=== PATIENT | male | born 1975 ===

== ENCOUNTER 2018-06-20 18:57 | Emergency (ER) | payer SELFPAY ==
[2018-06-20 20:01] LABS: Absolute Lymphocytes (CBC) 2.4 K/uL (0.7-4.9); Absolute Monocytes 0.4 K/uL (0.1-1.3); Absolute Neutrophil 3.5 K/uL (1.8-8.0); Basophils % 0.7 % (0-1.3); Hematocrit 47.5 % (39.6-49.0); Lymphocytes % 34.9 % (15.3-44.8); MPV 9.1 fL (7.6-11.3); Monocytes % 5.9 % (3.3-12.3); RBC Red Blood Cell Count 5.34 M/uL (4.33-5.43)
[2018-06-20 20:21] LABS: Albumin 4.3 g/dL (3.4-5.0); Bilirubin Direct 0.2 mg/dL (0-0.2); Bilirubin Total 1.5 mg/dL (0.2-1.0); Potassium 3.7 mmol/L (3.5-5.1); Protein, Total 8.2 g/dL (6.4-8.2)
[2018-06-20 20:59] LABS: Urine Blood 3+ (NEG); Urine Glucose NEGATIVE (NEG); Urine Protein NEGATIVE (NEG); Urine pH 5.5 (5.0-7.0)
--- NOTE | 2018-06-20 21:08 | RAD REPORT ---
EXAM DESCRIPTION: CT - Abdomen Pelvis W Contrast - 06/20/2018 8:43 pm CLINICAL HISTORY: Abdominal pain COMPARISON: none. TECHNIQUE: Computed axial tomography of the abdomen pelvis was obtained. 100 cc Isovue-300 was admin istered intravenously. Oral contrast was not requested which limits evaluation of bowel. All CT scans are performed using dose optimization technique as appropriate and may include automated exposure control or mA/KV adjustment according to patient size. FINDINGS: Mild left hydronephrosis. Small bilateral renal calculi. 5 millimeter calculus proximal le ft ureter Hounsfield unit 611. Small right renal cyst. Liver, spleen, pancreas and adrenals are unremarkable. There is no evidence of diverticulitis. Normal appendix Small umbilical hernia. Curvilinear calcification within the distal penis perhaps related to prior in flammation. IMPRESSION: 5 millimeter calculus proximal left ureter resulting mild left hydronephrosis.
--- NOTE | 2018-06-20 21:25 | ER ---
Nurse's Notes [facility] Name: Davie Rich Age: 42 yrs Sex: Male : 1975 Arrival Date: 06/20/2018 Time: 19:02 Bed 28 Private MD: Diagnosis: Calculus of ureter-left Presentation: 06/20 19:14 Presenting complaint: Patient states: I have been having abdominal pain for about 10 tl1 days with worsening pain the last 2 days. No nausea or vomiting or diarrhea reported. Transition of care: patient was not received from another setting of care. Onset of symptoms is unknown. Risk Assessment: Do you want to hurt yourself or someone else? Patient reports no desire to harm self or others. Initial Sepsis Screen: Does the patient meet any 2 criteria? No. Patient's initial sepsis screen is negative. Does the patient have a suspected source of infection? No. Patient's initial sepsis screen is negative. Care prior to arrival: None. 19:14 Method Of Arrival: Ambulatory tl1 19:14 Acuity: MERRICK 3 tl1 Historical: - Allergies: 19:16 No Known Allergies; tl1 - Home Meds: 19:16 None [Active]; tl1 - PMHx: 19:16 None; tl1 - PSHx: 19:16 hernia repair; tl1 - Immunization history:: Adult Immunizations up to date. - Social history:: Smoking status: Patient/guardian denies using tobacco, never smoked, Patient uses alcohol, but reports only rare drinking. - Ebola Screening: : Patient negative for fever greater than or equal to 101.5 degrees Fahrenheit, and additional compatible Ebola Virus Disease symptoms Patient denies exposure to infectious person Patient denies travel to an Ebola-affected area in the 21 days before illness onset. Screenin:17 Abuse screen: Denies threats or abuse. Denies injuries from another. Nutritional mg2 screening: No deficits noted. Tuberculosis screening: No symptoms or risk factors identified. Fall Risk None identified. Assessment: 19:36 General: Appears in no apparent distress. comfortable, Behavior is calm, cooperative. mg2 Pain: Complains of pain in back and abdomen Pain does not radiate. Quality of pain is described as aching, Pain began gradually, 15 days ago Is intermittent. Neuro: Level of Consciousness is awake, alert, obeys commands, Oriented to person, place, time, situation. Cardiovascular: Capillary refill < 3 seconds Patient's skin is warm and dry. Respiratory: Airway is patent Respiratory effort is even, unlabored, Respiratory pattern is regular, symmetrical. GI: Bowel sounds present X 4 quads. Abd is soft and non tender. GI: Abdomen is flat, non-distended, Reports lower abdominal pain, upper abdominal pain. : Urine is clear. EENT: No signs and/or symptoms were reported regarding the EENT system. Derm: Skin is intact, is healthy with good turgor, Skin is pink, warm \T\ dry. normal. Musculoskeletal: No signs and/or symptoms reported regarding the musculoskeletal system. 20:45 Reassessment: patient sent for ct scan. mg2 21:33 Reassessment: patient for discharge after the iv fluid bolus. mg2 Vital Signs: 19:15 BP 120 / 86; Pulse 73; Resp 17; Temp 99(O); Pulse Ox 99% ; Weight 54.43 kg; Height 5 tl1 ft. 3 in. (160.02 cm); Pain 7/10; 21:32 BP 121 / 78; Pulse 71; Resp 17; Pulse Ox 100% on R/A; Pain 3/10; mg2 19:15 Body Mass Index 21.26 (54.43 kg, 160.02 cm) tl1 ED Course: 19:02 Patient arrived in ED. mr 19:12 Jose R Puente, NAS is PHCP. pm1 19:12 Sana Merino MD is Attending Physician. pm1 19:15 Triage completed. tl1 19:16 Brant De, RN is Primary Nurse. mg2 19:16 Arm band placed on right wrist. tl1 19:18 Patient has correct armband on for positive identification. Door closed. Warm blanket mg2 given. 19:36 No provider procedures requiring assistance completed. Inserted saline lock: 20 gauge mg2 in left antecubital area, using aseptic technique. Blood collected. 20:43 CT Abd/Pelvis - W/Contrast: IV contrast only In Process Unspecified. EDMS 21:21 Sinai Amato MD is Referral Physician. pm1 22:30 IV discontinued, intact, bleeding controlled, No redness/swelling at site. Pressure mg2 dressing applied. Administered Medications: 21:31 Drug: TORadol 30 mg Route: IVP; Site: left antecubital; mg2 22:30 Follow up: Response: No adverse reaction; Marked relief of symptoms mg2 21:31 Drug: Flomax 0.4 mg Route: PO; mg2 22:30 Follow up: Response: No adverse reaction; Marked relief of symptoms mg2 21:32 Drug: NS 0.9% 1000 ml Route: IV; Rate: 1000 ml; Site: left antecubital; mg2 22:30 Follow up: Response: No adverse reaction; IV Status: Completed infusion mg2 Outcome: 21:24 Discharge ordered by MD. pm1 22:30 Discharged to home ambulatory, with friend. mg2 22:30 Condition: stable 22:30 Discharge instructions given to patient, friend, Instructed on discharge instructions, follow up and referral plans. medication usage, Demonstrated understanding of instructions, follow-up care, medications, Prescriptions given X 2. 22:31 Patient left the ED. mg2 Signatures: Dispatcher [employer] Reva Bishop MicahSuni eason RN RN tl1 Jose R Puente, NAS ORDER TAKER pm1 Brant De RN RN mg2
--- NOTE | 2018-06-20 21:25 | EDPHYS ---
Physician Documentation [facility] Name: Davie Rich Age: 42 yrs Sex: Male : 1975 Arrival Date: 06/20/2018 Time: 19:02 Bed 28 Private MD: ED Physician Sana Merino HPI: 06/20 20:13 This 42 yrs old Unknown Male presents to ER via Ambulatory with complaints of Abdominal pm1 Pain, Flank Pain. 20:13 The patient presents with abdominal pain that is diffuse. Onset: The symptoms/episode pm1 began/occurred 10 day(s) ago. The symptoms do not radiate. Associated signs and symptoms: Pertinent negatives: nausea, vomiting, and diarrhea, chest pain, dysuria, fever, headache, shortness of breath, testicular pain. The symptoms are described as crampy. Modifying factors: The symptoms are alleviated by nothing, the symptoms are aggravated by nothing. Severity of pain: in the emergency department the pain is actually worse past two days. The patient has not experienced similar symptoms in the past. Historical: - Allergies: 19:16 No Known Allergies; tl1 - Home Meds: 19:16 None [Active]; tl1 - PMHx: 19:16 None; tl1 - PSHx: 19:16 hernia repair; tl1 - Immunization history:: Adult Immunizations up to date. - Social history:: Smoking status: Patient/guardian denies using tobacco, never smoked, Patient uses alcohol, but reports only rare drinking. - Ebola Screening: : Patient negative for fever greater than or equal to 101.5 degrees Fahrenheit, and additional compatible Ebola Virus Disease symptoms Patient denies exposure to infectious person Patient denies travel to an Ebola-affected area in the 21 days before illness onset. ROS: 20:15 Constitutional: Negative for fever, chills, and weight loss, Eyes: Negative for injury, pm1 pain, redness, and discharge, ENT: Negative for injury, pain, and discharge, Neck: Negative for injury, pain, and swelling, Cardiovascular: Negative for chest pain, palpitations, and edema, Respiratory: Negative for shortness of breath, cough, wheezing, and pleuritic chest pain. 20:15 : Negative for injury, bleeding, discharge, and swelling, MS/Extremity: Negative for injury and deformity, Skin: Negative for injury, rash, and discoloration, Neuro: Negative for headache, weakness, numbness, tingling, and seizure. 20:15 Abdomen/GI: Positive for abdominal pain, of the abdomen diffusely, Negative for nausea, vomiting, and diarrhea. 20:15 Back: Positive for flank pain, bilaterally. Exam: 20:15 Constitutional: This is a well developed, well nourished patient who is awake, alert, pm1 and in no acute distress. Head/Face: Normocephalic, atraumatic. Eyes: Pupils equal round and reactive to light, extra-ocular motions intact. Lids and lashes normal. Conjunctiva and sclera are non-icteric and not injected. Cornea within normal limits. Periorbital areas with no swelling, redness, or edema. ENT: Nares patent. No nasal discharge, no septal abnormalities noted. Tympanic membranes are normal and external auditory canals are clear. Oropharynx with no redness, swelling, or masses, exudates, or evidence of obstruction, uvula midline. Mucous membranes moist. Neck: Trachea midline, no thyromegaly or masses palpated, and no cervical lymphadenopathy. Supple, full range of motion without nuchal rigidity, or vertebral point tenderness. No Meningismus. Chest/axilla: Normal chest wall appearance and motion. Nontender with no deformity. No lesions are appreciated. Cardiovascular: Regular rate and rhythm with a normal S1 and S2. No gallops, murmurs, or rubs. Normal PMI, no JVD. No pulse deficits. Respiratory: Lungs have equal breath sounds bilaterally, clear to auscultation and percussion. No rales, rhonchi or wheezes noted. No increased work of breathing, no retractions or nasal flaring. Abdomen/GI: Soft, non-tender, with normal bowel sounds. No distension or tympany. No guarding or rebound. No evidence of tenderness throughout. Back: No spinal tenderness. No costovertebral tenderness. Full range of motion. Skin: Warm, dry with normal turgor. Normal color with no rashes, no lesions, and no evidence of cellulitis. MS/ Extremity: Pulses equal, no cyanosis. Neurovascular intact. Full, normal range of motion. 20:15 Neuro: Orientation: is normal, Motor: is normal, moves all fours, Sensation: is normal, no obvious gross deficits, Gait: is steady, at a normal pace, without difficulty. Vital Signs: 19:15 BP 120 / 86; Pulse 73; Resp 17; Temp 99(O); Pulse Ox 99% ; Weight 54.43 kg; Height 5 tl1 ft. 3 in. (160.02 cm); Pain 7/10; 21:32 BP 121 / 78; Pulse 71; Resp 17; Pulse Ox 100% on R/A; Pain 3/10; mg2 19:15 Body Mass Index 21.26 (54.43 kg, 160.02 cm) tl1 MDM: 19:12 Patient medically screened. pm1 21:21 Data reviewed: vital signs. Data interpreted: Pulse oximetry: on room air is 99 %. pm1 Interpretation: normal. Counseling: I had a detailed discussion with the patient and/or guardian regarding: the historical points, exam findings, and any diagnostic results supporting the discharge/admit diagnosis, lab results, radiology results, the need for outpatient follow up, for definitive care, a urologist, to return to the emergency department if symptoms worsen or persist or if there are any questions or concerns that arise at home. 06/20 19:33 Order name: Basic Metabolic Panel; Complete Time: 20:37 pm1 06/20 19:33 Order name: CBC with Diff; Complete Time: 20:37 pm1 06/20 19:33 Order name: Creatinine for Radiology; Complete Time: 20:37 pm1 06/20 19:33 Order name: Hepatic Function; Complete Time: 20:37 pm1 06/20 19:33 Order name: Lipase; Complete Time: 20:37 pm1 06/20 19:40 Order name: Urine Dipstick--Ancillary (enter results); Complete Time: 21:01 ar5 06/20 19:33 Order name: IV Saline Lock; Complete Time: 19:35 pm1 06/20 19:33 Order name: Labs collected and sent; Complete Time: 19:35 pm1 06/20 19:33 Order name: Urine Dipstick-Ancillary (obtain specimen); Complete Time: 19:35 pm1 06/20 19:33 Order name: CT Abd/Pelvis - W/Contrast: IV contrast only; Complete Time: 21:13 pm1 Administered Medications: 21:31 Drug: TORadol 30 mg Route: IVP; Site: left antecubital; mg2 22:30 Follow up: Response: No adverse reaction; Marked relief of symptoms mg2 21:31 Drug: Flomax 0.4 mg Route: PO; mg2 22:30 Follow up: Response: No adverse reaction; Marked relief of symptoms mg2 21:32 Drug: NS 0.9% 1000 ml Route: IV; Rate: 1000 ml; Site: left antecubital; mg2 22:30 Follow up: Response: No adverse reaction; IV Status: Completed infusion mg2 Disposition: 06/20/18 21:24 Discharged to Home. Impression: Calculus of ureter - left. - Condition is Stable. - Discharge Instructions: Kidney Stones, Dietary Guidelines to Help Prevent Kidney Stones. - Prescriptions for Tylenol- Codeine #3 300-30 mg Oral Tablet - take 2 tablets by ORAL route every 6 hours As needed; 20 tablet. Flomax 0.4 mg Oral Capsule, Sust. Release 24 hr - take 1 capsule by ORAL route once daily 1/2 hour following the same meal each day; 30 capsule. - Medication Reconciliation Form, Thank You Letter, Prescription Opioid Use form. - Follow up: Emergency Department; When: As needed; Reason: Worsening of condition. Follow up: Sinai Amato MD; When: 2 - 3 days; Reason: Recheck today's complaints, Continuance of care, Re-evaluation by your physician. - Problem is new. - Symptoms have improved. Addendum: 06/22/2018 07:31 Co-signature as Attending Physician, Sana Merino MD. m a2 Signatures: Dispatcher [employer] EDSuni Crow RN RN tl1 Jose R Puente, COURT ADV[facility] COURT ADVOCATE pm1 Sana Merino MD MD ma2 Brant De RN RN mg2 Corrections: (The following items were deleted from the chart) 06/20 22:31 21:24 06/20/2018 21:24 Discharged to Home. Impression: Calculus of ureter - left. mg2 Condition is Stable. Forms are Medication Reconciliation Form, Thank You Letter, Antibiotic Education, Prescription Opioid Use. Follow up: Emergency Department; When: As needed; Reason: Worsening of condition. Follow up: Sinai Amato; When: 2 - 3 days; Reason: Recheck today's complaints, Continuance of care, Re-evaluation by your physician. Problem is new. Symptoms have improved. pm1
[2018-06-20] MEDS ORDERED: KETOROLAC 30 MG/ML INJ ONE (21:40)
[2018-06-20] MEDS ORDERED: TAMSULOSIN 0.4 MG SR CAP ONE (21:40)
[2018-06-20] MEDS ORDERED: NA CHLORIDE 0.9% 1,000 ML ONE (21:41)
== END 2018-06-20 22:31 | disposition home or self-care (01) ==
LOC: ER 18:57
DX: N20.1 Calculus of ureter (principal)
CPT/HCPCS: 36415; 74177; 80048; 80076; 81003; 83690; 85025; 96361; 96374; 99284; J7030; Q9967

== ENCOUNTER 2020-08-04 19:32 | Emergency (ER) | payer SELFPAY ==
--- OUTSIDE RECORDS SUMMARY | 2020-08-04 19:35 | XMS REPORT | Continuity of Care Document ---
:1975 Author Organization [facility] t Address [address] [place] [address] Care Team Providers Name Role Phone Unavailable Unavailable Unavailable Problems Condition Condition Condition Status Onset Resolution Last Treating Co mments Source Name Details Category Date Date Treatment Clinician Date GERD GERD Problem Active [facility] - esophagiti esophagiti Me moria [facility] Mixed [facility] Diagnosis Active [facility] hyperlipid hyperlipid Vivian k[facility] - emia em[facility] Kidney Kidney Diagnosis Active [facility] stone [facility] Clinics Nonintract Nonintract Diagnosis Active [facility] able [facility] - headache, headache, Kannan felipe unspecifie unspecifie l d d Outpati chronicity chronicity en t pattern, pattern, Clinic s unspecifie unspecifie d headache d headache type type Allergies, Adverse Reactions, Alerts This patient has no known allergies or adverse reactions. Medications Ordered Filled Start Stop Current Ordering Indication Dosage Frequency Signature Comments Components Source Medication Medication Date Date Medication? Clinician (SIG) Name Name Pantoprazol Pantoprazol 2019-0 Yes Live [address] [facility] Sodium e Sodium 4-04 [facility] - 00:00: [facility] 00 [facility] ent Clinics Procedures This patient has no known procedures. Encounters Start End Encounter Admission Attending Care Care Encounter Source Date/Time Date/Time Type Type Clinicians Facility Department ID 2018-07-23 2018-07-23 [facility] [id number] [facility] [address] 09:00:00 09:00:00 [facility] Medicine Medicine [facility] ent Clinics Results This patient has no known results.
[2020-08-04 21:31] LABS: Absolute Lymphocytes (CBC) 1.2 K/uL (0.7-4.9); Basophils % 0.4 % (0-1.3); Hematocrit 41.6 % (39.6-49.0); Lymphocytes % 13.6 % (15.3-44.8); MPV 9.4 fL (7.6-11.3); RBC Red Blood Cell Count 4.82 M/uL (4.33-5.43)
[2020-08-04] MEDS ORDERED: NA CHLORIDE 0.9% 1,000 ML ONE (21:42)
[2020-08-04] MEDS ORDERED: MORPHINE 4 MG/ML SYR ONE (21:42)
[2020-08-04] MEDS ORDERED: ONDANSETRON 4 MG/2 ML VIAL ONE (21:42)
[2020-08-04 21:49] LABS: Albumin 4.1 g/dL (3.4-5.0); Bilirubin Direct 0.2 mg/dL (0-0.2); Bilirubin Total 1.7 mg/dL (0.2-1.0); Potassium 3.6 mmol/L (3.5-5.1); Protein, Total 7.8 g/dL (6.4-8.2)
[2020-08-04] MEDS ORDERED: TAMSULOSIN 0.4 MG SR CAP ONE (23:23)
[2020-08-04] MEDS ORDERED: KETOROLAC 30 MG/ML INJ ONE (23:43)
[2020-08-05 00:13] LABS: Urine Blood 1+ (Negative); Urine Glucose NEGATIVE (Negative); Urine Protein NEGATIVE (Negative)
--- NOTE | 2020-08-05 00:21 | EDPHYS ---
Physician Documentation [facility] Name: Davie Rich Age: 44 yrs Sex: Male : 1975 Arrival Date: 08/04/2020 Time: 19:36 Bed 25 Private MD: ED Physician Holland Terry HPI: 08/04 21:05 This 44 yrs old Unknown Male presents to ER via Ambulatory with complaints of Pain. jmm 21:05 The patient presents with abdominal pain. The symptoms radiate to the right flank. jmm Associated signs and symptoms: Pertinent negatives: fever, vomiting. The symptoms are described as achy. Modifying factors: The symptoms are alleviated by nothing, the symptoms are aggravated by nothing. The patient has experienced a previous episode. This is a 44 year old male with no chronic medical conditions that presents to the ED with complaints of right lower abdominal pain beginning today. Patient states having a similar episode with kidney stone. Patient denies vomiting, fever. . Historical: - Allergies: 20:15 No Known Allergies; ca1 - PMHx: 20:15 None; ca1 - PSHx: 20:15 Hernia repair; ca1 - Immunization history:: Flu vaccine is not up to date. - Social history:: Smoking status: Patient denies any tobacco usage or history of. ROS: 21:05 Constitutional: Negative for fever, chills, and weight loss, Cardiovascular: Negative jmm for chest pain, palpitations, and edema, Respiratory: Negative for shortness of breath, cough, wheezing, and pleuritic chest pain. 21:05 Abdomen/GI: Positive for abdominal pain. 21:05 All other systems are negative. Exam: 21:05 Constitutional: This is a well developed, well nourished patient who is awake, alert, jmm and in no acute distress. Head/Face: atraumatic. Eyes: EOMI, no conjunctival erythema appreciated ENT: Moist Mucus Membranes Neck: Trachea midline, Supple Chest/axilla: Normal chest wall appearance and motion. Cardiovascular: Regular rate and rhythm. No edema appreciated Respiratory: Normal respirations, no respiratory distress appreciated 21:05 Skin: General appearance color normal MS/ Extremity: Moves all extremities, no obvious deformities appreciated, no edema noted to the lower extremities Neuro: Awake and alert, normal gait Psych: Behavior is normal, Mood is normal, Patient is cooperative and pleasant 21:05 Abdomen/GI: Inspection: abdomen appears normal, Bowel sounds: normal, Palpation: soft, mild abdominal tenderness, in the right lower quadrant. 21:05 Back: CVA tenderness, that is mild, is noted on the right. Vital Signs: 20:12 BP 153 / 91; Pulse 92; Resp 16 S; Temp 97.6(TE); Pulse Ox 100% on R/A; Weight 57 kg; ca1 Height 5 ft. 3 in. (160.02 cm) (R); Pain 9/10; 21:49 BP 132 / 89; Pulse 81; Resp 18; Pulse Ox 100% on R/A; zb 22:00 BP 133 / 92; Pulse 80; Resp 16; Pulse Ox 100% on R/A; zb 23:15 BP 136 / 85; Pulse 83; Resp 18; Pulse Ox 100% on R/A; zb 20:12 Body Mass Index 22.26 (57.00 kg, 160.02 cm) ca1 MDM: 21:05 Patient medically screened. [facility] 08/05 00:17 Data reviewed: vital signs, nurses notes. Counseling: I had a detailed discussion with [facility] the patient and/or guardian regarding: the historical points, exam findings, and any diagnostic results supporting the discharge/admit diagnosis, lab results, radiology results, the need for outpatient follow up, to return to the emergency department if symptoms worsen or persist or if there are any questions or concerns that arise at home. ED course: Patient states feeling much better. Advised to follow up with pcp and otherwise given strict return precautions. patient understood and agrees with the plan fo care. . 08/04 21:05 Order name: Basic Metabolic Panel; Complete Time: 21:49 [facility] 08/04 21:05 Order name: CBC with Diff; Complete Time: 21:42 [facility] 08/04 21:05 Order name: Hepatic Function; Complete Time: 21:49 [facility] 08/04 21:05 Order name: Lipase; Complete Time: 21:49 [facility] 08/05 00:06 Order name: Urine Dipstick--Ancillary (enter results) tt3 08/05 00:13 Order name: Urine Dipstick-Ancillary [facility] 08/04 21:05 Order name: IV Saline Lock; Complete Time: 21:10 [facility] 08/04 21:05 Order name: Labs collected and sent; Complete Time: 21:29 [facility] 08/04 21:05 Order name: CT Stone Protocol [facility] 08/05 00:02 Order name: Urine Dipstick-Ancillary (obtain specimen); Complete Time: 00:05 [facility] Administered Medications: 08/04 21:28 Drug: NS 0.9% 1000 ml Route: IV; Rate: 1000 ml; Site: left antecubital; zb 23:14 Follow up: Response: No adverse reaction; IV Status: Completed infusion; IV Intake: zb 1000ml 21:28 Drug: Zofran (Ondansetron) 4 mg Route: IVP; Site: left antecubital; zb 22:00 Follow up: Response: No adverse reaction zb 21:28 Drug: morphine 4 mg {Note: rass +1.} Route: IVP; Site: left antecubital; zb 22:00 Follow up: Response: No adverse reaction; Pain is decreased; RASS: Alert and Calm (0) zb 23:10 Drug: Flomax 0.4 mg Route: PO; zb 23:27 Follow up: Response: No adverse reaction zb 23:27 Drug: TORadol (ketorolac) 30 mg Route: IVP; Site: left antecubital; zb 23:55 Follow up: Response: No adverse reaction; Marked relief of symptoms; Pain is decreased zb Disposition: 08/05 07:27 Co-signature as Attending Physician, Holland Terry MD. [email or web address] Disposition: 08/05/20 00:21 Discharged to Home. Impression: Calculus of kidney and ureter. - Condition is Stable. - Discharge Instructions: Kidney Stones, Dietary Guidelines to Help Prevent Kidney Stones. - Prescriptions for Zofran ODT 4 mg Oral tablet,disintegrating - place 1 tablet by TRANSLINGUAL route every 4-6 hours; 20 tablet. Tylenol- Codeine #3 300-30 mg Oral Tablet - take 1 tablet by ORAL route every 4-6 hours As needed; 20 tablet. Flomax 0.4 mg Oral Capsule, Sust. Release 24 hr - take 1 capsule by ORAL route once daily 1/2 hour following the same meal each day; 30 capsule. - Medication Reconciliation Form, Thank You Letter, Antibiotic Education, Prescription Opioid Use form. - Follow up: Delfin Godwin MD; When: 2 - 3 days; Reason: Recheck today's complaints, Continuance of care, Re-evaluation by your physician. Signatures: Dispatcher [employer] EDNeymar Bro PA PA jmm Acob, Cheryl RN RN [facility] Holland Terry MD MD [facility] Miri Magana RN RN zb Corrections: (The following items were deleted from the chart) 00:29 00:21 08/05/2020 00:21 Discharged to Home. Impression: Calculus of kidney and ureter. zb Condition is Stable. Forms are Medication Reconciliation Form, Thank You Letter, Antibiotic Education, Prescription Opioid Use. Follow up: Delfin Godwin; When: 2 - 3 days; Reason: Recheck today's complaints, Continuance of care, Re-evaluation by your physician. [email or web address]
--- NOTE | 2020-08-05 00:21 | ER ---
Nurse's Notes [facility] Name: Davie Rich Age: 44 yrs Sex: Male : 1975 Arrival Date: 08/04/2020 Time: 19:36 Bed 25 Private MD: Diagnosis: Calculus of kidney and ureter Presentation: 08/04 20:12 Chief complaint: Patient states: HX of kidney stones. R flank pain radiating to the LRQ ca1 and to the groin and testicular area. Denies N/V. Reports occasional pain with urination. Coronavirus screen: Client denies travel out of the [place] in the last 14 days. At this time, the client does not indicate any symptoms associated with coronavirus-19. Ebola Screen: Patient negative for fever greater than or equal to 101.5 degrees Fahrenheit, and additional compatible Ebola Virus Disease symptoms Patient denies exposure to infectious person. Patient denies travel to an Ebola-affected area in the 21 days before illness onset. No symptoms or risks identified at this time. Initial Sepsis Screen: Does the patient meet any 2 criteria? No. Patient's initial sepsis screen is negative. Does the patient have a suspected source of infection? No. Patient's initial sepsis screen is negative. Risk Assessment: Do you want to hurt yourself or someone else? Patient reports no desire to harm self or others. Onset of symptoms was August 04, 2020. 20:12 Method Of Arrival: Ambulatory ca1 20:12 Acuity: MERRICK 3 ca1 Historical: - Allergies: 20:15 No Known Allergies; ca1 - PMHx: 20:15 None; ca1 - PSHx: 20:15 Hernia repair; ca1 - Immunization history:: Flu vaccine is not up to date. - Social history:: Smoking status: Patient denies any tobacco usage or history of. Screenin:53 Abuse screen: Denies threats or abuse. Denies injuries from another. Nutritional zb screening: No deficits noted. Tuberculosis screening: No symptoms or risk factors identified. Fall Risk None identified. Assessment: 20:53 General: Appears uncomfortable, Behavior is calm, cooperative, appropriate for age. zb Pain: Complains of pain in posterior aspect of left lateral abdomen, groin, right femoral area and right inguinal area Pain radiates to right flank Pain currently is 10 out of 10 on a pain scale. Pain began 4 hours ago. Is continuous, Alleviated by nothing. Noted to be guarding, Also complains of no other associated symptoms. Neuro: Level of Consciousness is awake, alert, obeys commands, Oriented to person, place, time, situation, Gait is steady. Cardiovascular: Capillary refill < 3 seconds Patient's skin is warm and dry. Respiratory: Airway is patent Respiratory effort is even, unlabored, Respiratory pattern is regular, symmetrical. GI: Abdomen is round Abd is soft and non tender X 4 quads. : Urine is clear, Reports burning with urination, pain in right in suprapubic area flank(s), scrotum, with urination. Derm: Skin is intact, is healthy with good turgor, Skin is dry, Skin is normal, Skin temperature is warm. Musculoskeletal: Range of motion: intact in all extremities. 21:02 Reassessment: ecp at bedside. zb 21:36 Reassessment: patient came back from CT. zb 22:20 Reassessment: Patient appears in no apparent distress at this time. Patient and/or zb family updated on plan of care and expected duration. Pain level reassessed. Patient is alert, oriented x 3, equal unlabored respirations, skin warm/dry/pink. 23:16 Reassessment: Patient appears in no apparent distress at this time. Patient and/or zb family updated on plan of care and expected duration. Pain level reassessed. Patient is alert, oriented x 3, equal unlabored respirations, skin warm/dry/pink. pt states he is still having pain. notified ECP. 23:55 Reassessment: patient given additional medication. states pain has decreased. patient zb states he is feeling a little better. Vital Signs: 20:12 BP 153 / 91; Pulse 92; Resp 16 S; Temp 97.6(TE); Pulse Ox 100% on R/A; Weight 57 kg; ca1 Height 5 ft. 3 in. (160.02 cm) (R); Pain 9/10; 21:49 BP 132 / 89; Pulse 81; Resp 18; Pulse Ox 100% on R/A; zb 22:00 BP 133 / 92; Pulse 80; Resp 16; Pulse Ox 100% on R/A; zb 23:15 BP 136 / 85; Pulse 83; Resp 18; Pulse Ox 100% on R/A; zb 20:12 Body Mass Index 22.26 (57.00 kg, 160.02 cm) ca1 ED Course: 19:36 Patient arrived in ED. am4 20:14 Triage completed. ca1 20:15 Arm band placed on right wrist. ca1 20:20 Neymar Lantigua PA is PHCP. jmm 20:20 Holland Terry MD is Attending Physician. jmm 20:48 Miri Maagna RN is Primary Nurse. zb 20:55 Patient has correct armband on for positive identification. Bed in low position. Call zb light in reach. Side rails up X 1. Pulse ox on. NIBP on. Door closed. Noise minimized. 20:55 Urine collected: clean catch specimen, clear. zb 21:21 Inserted saline lock: 20 gauge in left antecubital area, using aseptic technique. Blood dh4 collected. 21:47 CT Stone Protocol In Process Unspecified. EDMS 08/05 00:19 Delfin Godwin MD is Referral Physician. m 00:28 No provider procedures requiring assistance completed. IV discontinued, intact, zb bleeding controlled, No redness/swelling at site. Pressure dressing applied. Administered Medications: 08/04 21:28 Drug: NS 0.9% 1000 ml Route: IV; Rate: 1000 ml; Site: left antecubital; zb 23:14 Follow up: Response: No adverse reaction; IV Status: Completed infusion; IV Intake: zb 1000ml 21:28 Drug: Zofran (Ondansetron) 4 mg Route: IVP; Site: left antecubital; zb 22:00 Follow up: Response: No adverse reaction zb 21:28 Drug: morphine 4 mg {Note: rass +1.} Route: IVP; Site: left antecubital; zb 22:00 Follow up: Response: No adverse reaction; Pain is decreased; RASS: Alert and Calm (0) zb 23:10 Drug: Flomax 0.4 mg Route: PO; zb 23:27 Follow up: Response: No adverse reaction zb 23:27 Drug: TORadol (ketorolac) 30 mg Route: IVP; Site: left antecubital; zb 23:55 Follow up: Response: No adverse reaction; Marked relief of symptoms; Pain is decreased zb Intake: 23:14 IV: 1000ml; Total: 1000ml. zb Outcome: 08/05 00:21 Discharge ordered by . santosh 00:28 Discharged to home ambulatory. zb 00:28 Condition: stable 00:28 Discharge instructions given to patient, Instructed on discharge instructions, follow up and referral plans. medication usage, Demonstrated understanding of instructions, follow-up care, medications, Prescriptions given X 3. 00:29 Patient left the ED. zb Signatures: Dispatcher [employer] EDMS Neymar Lantigua PA PA jmm Acob, Cheryl, RN RN ca1 Guicho Glaser 4 Miri Magana RN RN Wendy Templeton [facility]
[2020-08-05 01:25] VITALS: TEMP 97.6; O2SAT 100
[2020-08-05 01:30] VITALS: BP 136/85
--- NOTE | 2020-08-05 20:08 | RAD REPORT ---
EXAM DESCRIPTION: CT - Stone Protocol - 08/05/2020 6:45 am CLINICAL HISTORY: Male, 44 years old, FLANK PAIN COMPARISON: 06/20/2018 TECHNIQUE: CT acquisition of the abdomen and pelvis without contrast. Coronal and sagittal reformatt ed images provided. This exam was performed according to departmental dose-optimization program which includes automated exposure control, adjustment of the mA and/or kV according to patient size, and/o r use of iterative reconstruction technique. FINDINGS: SUPPORTIVE DEVICES: None. LOWER CHEST: No significant abnormality within the lower chest. ABDOMEN AND PELVIS: Lack of intravenous contrast limits evaluation of the abdominal and pelvic viscera and vascular struc tures. Liver: Small dystrophic calcification of the inferior right hepatic lobe, otherwise unremarkable. Gallbladder and bile ducts: Unremarkable. Pancreas: Unremarkable. Spleen: Unremarkable. Adrenal glands: Unremarkable. Kidneys and ureters: 3 mm stone within the right distal ureter immediately proximal to the ureteroves icular junction with mild to moderate hydroureteronephrosis. Additional nonobstructing stones are pre sent within the right more numerous than left renal collecting systems. The left ureter is unremarkab le. Bladder: Normal. Reproductive organs: Calcification of the corpora cavernosa, otherwise unremarkable. GI tract: Normal caliber without wall thickening. Normal appendix. Submucosal fat infiltration involv ing a majority of the large bowel from the cecum to the descending/sigmoid colonic junction. Lymph nodes: No obvious adenopathy. Peritoneum: No evidence of ascites, fluid collection, or free air. Abdominal wall: No significant hernia. Vessels: Unremarkable. MUSCULOSKELETAL: No acute osseous abnormality. IMPRESSION: 1. Obstructing 3 mm stone within the right distal ureter with mild to moderate obstruc tive uropathy. 2. Additional nonobstructing stones are present within the right more numerous than left renal elijah ecting systems. 3. Submucosal fat infiltration of the majority of the colonic wall can be seen in the setting of ch ronic inflammation. Electronically signed by: Tony Saul MD 08/04/2020 10:01 PM CDT Due to temporary technical issues with the PACS/Fluency reporting system, reports are being signed by the in house radiologists without review as a courtesy to insure prompt reporting. The interpreting radiologist is fully responsible for the content of the report.
== END 2020-08-05 00:29 | disposition home or self-care (01) ==
LOC: ER 19:32
DX: N13.2 Hydronephrosis with renal and ureteral calculous obstruction (principal)
CPT/HCPCS: 36415; 74176; 76377; 80048; 80076; 81003; 83690; 85025; 96361; 96374; 96375; 99284; J2405; J7030

== ENCOUNTER 2020-08-15 13:23 | Emergency (ER) | payer SELFPAY ==
--- OUTSIDE RECORDS SUMMARY | 2020-08-15 13:25 | XMS REPORT | Continuity of Care Document ---
:1975 Author Organization [facility] t Address [address] [place] [address] Care Team Providers Name Role Phone Unavailable Unavailable Unavailable Problems Condition Condition Condition Status Onset Resolution Last Treating Co mments Source Name Details Category Date Date Treatment Clinician Date GERD GERD Problem Active [facility] Mixed Mixed Diagnosis [facility] hyperlipid [facility]lipid Vivian kes - emia emia [facility] Clinics Kidney Kidney Diagnosis [facility] Clinics Nonintract Nonintract Diagnosis Active [facility] S[facility] e S[facility] 4[facility] 00 [facility] ent Clinics Procedures This patient has no known procedures. Encounters Start End Encounter Admission Attending Care Care Encounter Source Date/Time Date/Time Type Type Clinicians Facility Department ID 2018-07-23 2018-07-23 [facility] [id number] [facility] 09:00:00 09:00:00 [facility] Medicine Medicine [facility] ent Clinics Results This patient has no known results.
[2020-08-15] MEDS ORDERED: MAGNESIUM CITRATE 300 ML BOT ONE (14:10)
--- NOTE | 2020-08-15 14:32 | RAD REPORT ---
EXAM DESCRIPTION: CT - Stone Protocol - 08/15/2020 2:14 pm CLINICAL HISTORY: Abdominal pain. COMPARISON: August 04, 2020 TECHNIQUE: Computed axial tomography of the abdomen pelvis was obtained without oral or IV contrast. Lack of IV and oral contrast limits evaluation of solid organs, bowel, and vessels. Coronal reformat miriam images were obtained and reviewed. All CT scans are performed using dose optimization technique as appropriate and may include automated exposure control or mA/KV adjustment according to patient size. FINDINGS: Right hydronephrosis has resolved. The calculus within the distal right ureter has passed. Small bilateral renal calculi. No left hydronephrosis. A ureteral calculus is not seen. No bladder ca lculus The liver, spleen, pancreas and adrenals appear grossly normal There is no evidence of diverticulitis. The appendix appears normal. Moderate amount of stool within the colon IMPRESSION: Small bilateral nonobstructing renal calculi Moderate stool within the colon
[2020-08-15] MEDS ORDERED: FLEET ENEMA ADULT PR ONE (15:33)
--- NOTE | 2020-08-15 16:49 | EDPHYS ---
Physician Documentation [facility] Name: Davie Rich Age: 44 yrs Sex: Male : 1975 Arrival Date: 08/15/2020 Time: 13:27 Bed 18 Private MD: ED Physician Nacho Saunders HPI: 08/15 16:40 This 44 yrs old Unknown Male presents to ER via Ambulatory with complaints of jmm Constipation. 16:40 The patient presents with abdominal pain that is diffuse. Onset: The symptoms/episode jmm began/occurred gradually, 5 day(s) ago. The symptoms do not radiate. Associated signs and symptoms: Pertinent positives: nausea and vomiting. The symptoms are described as achy. Modifying factors: The symptoms are alleviated by nothing, the symptoms are aggravated by nothing. Patient states he has been taking tylenol with codeine the past 5 days. . Historical: - Allergies: 13:49 No Known Allergies; em - Home Meds: 14:30 None [Active]; ld1 - PMHx: 13:49 Kidney stones; em - PSHx: 13:49 Hernia repair; em - Immunization history:: Adult Immunizations up to date. - Social history:: Smoking status: Patient denies any tobacco usage or history of. Smoking status: Patient denies any tobacco usage or history of. Patient/guardian denies using alcohol. ROS: 16:40 Constitutional: Negative for fever, chills, and weight loss, Cardiovascular: Negative jmm for chest pain, palpitations, and edema, Respiratory: Negative for shortness of breath, cough, wheezing, and pleuritic chest pain. 16:40 Abdomen/GI: Positive for abdominal pain, nausea, constipation. 16:40 All other systems are negative. Exam: 16:40 Constitutional: This is a well developed, well nourished patient who is awake, alert, jmm and in no acute distress. Head/Face: atraumatic. Eyes: EOMI, no conjunctival erythema appreciated ENT: Moist Mucus Membranes Neck: Trachea midline, Supple Chest/axilla: Normal chest wall appearance and motion. Cardiovascular: Regular rate and rhythm. No edema appreciated Respiratory: Normal respirations, no respiratory distress appreciated 16:40 Back: Normal ROM Skin: General appearance color normal MS/ Extremity: Moves all extremities, no obvious deformities appreciated, no edema noted to the lower extremities Neuro: Awake and alert, normal gait Psych: Behavior is normal, Mood is normal, Patient is cooperative and pleasant 16:40 Abdomen/GI: Inspection: abdomen appears normal, Bowel sounds: normal, Palpation: soft, mild abdominal tenderness, in all quadrants. Vital Signs: 13:46 BP 133 / 90; Pulse 84; Resp 18; Temp 98.7(O); Pulse Ox 100% on R/A; Weight 57 kg; em Height 5 ft. 3 in. (160.02 cm); Pain 7/10; 14:30 BP 135 / 83; Pulse 75; Resp 18; Temp 98.7(O); Pulse Ox 100% on R/A; Weight 57 kg; ld1 Height 5 ft. 3 in. (160.02 cm); Pain 0/10; 15:30 BP 105 / 86; Pulse 80; Resp 18; Pulse Ox 100% on R/A; ld1 14:30 Body Mass Index 22.26 (57.00 kg, 160.02 cm) ld1 MDM: 14:14 Patient medically screened. [facility] 16:47 Data reviewed: vital signs, nurses notes. Counseling: I had a detailed discussion with noel the patient and/or guardian regarding: the historical points, exam findings, and any diagnostic results supporting the discharge/admit diagnosis, radiology results, the need for outpatient follow up, to return to the emergency department if symptoms worsen or persist or if there are any questions or concerns that arise at home. ED course: Patient has had a bowel movement. Is advised to follow up with pcp for further evaluation. patient understood and agrees with the plan of care. . 08/15 13:50 Order name: CT Stone Protocol; Complete Time: 14:38 [facility] Administered Medications: 13:53 Drug: Magnesium Citrate Liquid 300 ml Route: PO; em 14:30 Follow up: Response: No adverse reaction ld1 15:22 Drug: Fleet Enema (sodium phosphate) 133 ml Route: AR; ld1 16:00 Follow up: Response: No adverse reaction ld1 Disposition: 08/15/20 16:48 Discharged to Home. Impression: Constipation. - Condition is Stable. - Discharge Instructions: Constipation, Adult. - Prescriptions for Miralax 17 gram/dose Oral - take 1 packet by ORAL route once daily dilute powder in 8 ounces of water or juice; 30 Pack. - Medication Reconciliation Form, Thank You Letter, Antibiotic Education, Prescription Opioid Use form. - Follow up: Private Physician; When: 2 - 3 days; Reason: Recheck today's complaints, Continuance of care, Re-evaluation by your physician. Addendum: 08/17/2020 06:36 Co-signature as Attending Physician, Nacho Saunders MD I agree with the assessment and t w4 plan of care. Signatures: Dispatcher [employer] Neymar Hill PA PA jmm Munoz, Edgar, RN RN Nacho Duke MD MD tw4 Noelle Grant RN RN ld1 Corrections: (The following items were deleted from the chart) 08/15 17:04 16:48 08/15/2020 16:48 Discharged to Home. Impression: Constipation. Condition is ld1 Stable. Forms are Medication Reconciliation Form, Thank You Letter, Antibiotic Education, Prescription Opioid Use. Follow up: Private Physician; When: 2 - 3 days; Reason: Recheck today's complaints, Continuance of care, Re-evaluation by your physician. santosh
--- NOTE | 2020-08-15 16:49 | ER ---
Nurse's Notes [facility] Name: Davie Rich Age: 44 yrs Sex: Male : 1975 Arrival Date: 08/15/2020 Time: 13:27 Bed 18 Private MD: Diagnosis: Constipation Presentation: 08/15 13:46 Chief complaint: Patient states: was given T3 for kidney stones, has not had a bowel em movement in 5 days, also reports abdominal pain 11/28, denies N/V/D or fever. Coronavirus screen: Client denies travel out of the [place] in the last 14 days. Ebola Screen: Patient negative for fever greater than or equal to 101.5 degrees Fahrenheit, and additional compatible Ebola Virus Disease symptoms Patient denies exposure to infectious person. Patient denies travel to an Ebola-affected area in the 21 days before illness onset. No symptoms or risks identified at this time. Initial Sepsis Screen: Does the patient meet any 2 criteria? No. Patient's initial sepsis screen is negative. Does the patient have a suspected source of infection? No. Patient's initial sepsis screen is negative. Risk Assessment: Do you want to hurt yourself or someone else? Patient reports no desire to harm self or others. Onset of symptoms was August 15, 2020. 13:46 Method Of Arrival: Ambulatory em 13:46 Acuity: MERRICK 3 em Historical: - Allergies: 13:49 No Known Allergies; em - Home Meds: 14:30 None [Active]; ld1 - PMHx: 13:49 Kidney stones; em - PSHx: 13:49 Hernia repair; em - Immunization history:: Adult Immunizations up to date. - Social history:: Smoking status: Patient denies any tobacco usage or history of. Smoking status: Patient denies any tobacco usage or history of. Patient/guardian denies using alcohol. Screenin:30 Abuse screen: Denies threats or abuse. Denies injuries from another. Nutritional ld1 screening: No deficits noted. Tuberculosis screening: No symptoms or risk factors identified. Fall Risk None identified. Assessment: 13:49 Reassessment: TERELL Blackmon notified of pt symptoms, received VO for mag citrate PO x 1, mag em citrate given from triage, pt will wait in the lobby until a room is available, instructed to come check back in if symptoms get better or worse. 14:25 General: Appears in no apparent distress. comfortable, Behavior is calm, cooperative, ld1 appropriate for age. Pain: Denies pain. Neuro: Level of Consciousness is awake, alert, obeys commands, Oriented to person, place, time, situation, Appropriate for age. Cardiovascular: Capillary refill < 3 seconds Patient's skin is warm and dry. Respiratory: Airway is patent Respiratory effort is even, unlabored, Respiratory pattern is regular, symmetrical. GI: Abdomen is round non-distended, Last BM was August 10, 2020. Bowel sounds present X 4 quads. Abd is soft and non tender X 4 quads. Reports constipation, since Pt states he has not had a bowel movement for the past 5 days. Patient currently denies abdominal pain. : No deficits noted. EENT: No deficits noted. Derm: No deficits noted. Musculoskeletal: No deficits noted. 16:20 Reassessment: patient laying in bed, stated "the enema helped a little bit, I passed a ld1 small amount of stool but I feel like I still need to use the bathroom. ERP notified of outcome. Vital Signs: 13:46 BP 133 / 90; Pulse 84; Resp 18; Temp 98.7(O); Pulse Ox 100% on R/A; Weight 57 kg; em Height 5 ft. 3 in. (160.02 cm); Pain 7/10; 14:30 BP 135 / 83; Pulse 75; Resp 18; Temp 98.7(O); Pulse Ox 100% on R/A; Weight 57 kg; ld1 Height 5 ft. 3 in. (160.02 cm); Pain 0/10; 15:30 BP 105 / 86; Pulse 80; Resp 18; Pulse Ox 100% on R/A; ld1 14:30 Body Mass Index 22.26 (57.00 kg, 160.02 cm) ld1 ED Course: 13:27 Patient arrived in ED. mr 13:49 Triage completed. em 13:49 Arm band placed on. em 13:50 Neymar Lantigua PA is PHCP. jmm 13:50 Nacho Saunders MD is Attending Physician. jmm 14:15 CT Stone Protocol In Process Unspecified. EDMS 14:21 Noelle Grant, RN is Primary Nurse. ld1 14:30 Patient has correct armband on for positive identification. Bed in low position. Call ld1 light in reach. Side rails up X 1. Pulse ox on. NIBP on. Door closed. Noise minimized. Warm blanket given. 14:30 No provider procedures requiring assistance completed. ld1 17:03 Patient did not have IV access during this emergency room visit. ld1 Administered Medications: 13:53 Drug: Magnesium Citrate Liquid 300 ml Route: PO; em 14:30 Follow up: Response: No adverse reaction ld1 15:22 Drug: Fleet Enema (sodium phosphate) 133 ml Route: CO; ld1 16:00 Follow up: Response: No adverse reaction ld1 Outcome: 16:48 Discharge ordered by . santosh 17:02 Discharged to home ambulatory. ld1 17:02 Condition: stable 17:02 Discharge instructions given to patient, Instructed on discharge instructions, medication usage, Demonstrated understanding of instructions, follow-up care, medications. 17:04 Patient left the ED. ld1 Signatures: Dispatcher [employer] EDNeymar Bro PA PA jmm Rivera, Mary mr Live Yoon, RN RN Noelle Grant RN RN ld1
[2020-08-15 17:19] VITALS: TEMP 98.7; O2SAT 100
[2020-08-15 17:22] VITALS: BP 105/86
== END 2020-08-15 17:04 | disposition home or self-care (01) ==
LOC: ER 13:23
DX: K59.00 Constipation, unspecified (principal)
CPT/HCPCS: 74176; 76377; 99283